=== PATIENT | female | born 1945 | race Caucasian/White ===

== ENCOUNTER 2017-02-16 11:39 | Emergency (ER) | payer OTHER ==
[~2017-02-16 11:39] MED LIST: B COMPLEX1 CA1 PO; BENICAR HCT 20-1 TA1 PO; CALTRATE 600+D PO; FISH OIL 1,0001 EAC2 PO; FISH OIL300 MG PO; LOSARTAN-HCTZ1 EACH PO; MEGARED OMEGA-1 EAC1; METOPROLOL SUCC25 MG PO; MULTIVITAMIN1 UDCAP PO; NIACIN500 M1 PO; PROTONIX PO; RELAFEN PO; TOPROL XL PO; VITAMIN B COMPLEX
[2017-02-16] MEDS ORDERED: ATORVASTATIN CA10 MG PO (11:42)
[2017-02-16 11:55] LABS: URINE APPEARANCE CLOUDY; URINE BILIRUBIN NEG (NEG); URINE BLOOD 2+ (NEG); URINE COLOR YELLOW; URINE GLUCOSE NEG (NORM); URINE KETONE TRACE (NEG); URINE LEUKOCYTE ESTERASE 3+ (NEG); URINE NITRATE NEG (NEG); URINE PH 5.5 (5-8); URINE PROTEIN 2+ (NEG); URINE SOURCE CLEAN CATCH; URINE UROBILINOGEN 0.2 MG/DL (NORM)
[2017-02-16 11:58] LABS: MICRO INDICATED? YES
[2017-02-16 11:59] LABS: CULTURE INDICATED? YES; URINE BACTERIA 2+ (NEG); URINE WBC INNUM /[HPF] (0-5)
[2017-02-16 12:29] LABS: BASOPHIL# 0.1 X10e3 (0-0.3); BASOPHIL% 0.4 % (0-2.5); EOSINOPHIL# 0.1 X10e3 (0-0.7); EOSINOPHIL% 0.8 % (0.0-7.0); HEMATOCRIT 35.6 % (35.0-45.0); LYMPHOCYTE% 8.4 % (17.0-45.0); MEAN CELL VOLUME 91.5 FL (83-96); MEAN CORPUSCULAR HEMOGLOBIN 30.8 PG (28-34); MEAN CORPUSCULAR HGB CONC 33.7 g/dL (30-36); MEAN PLATELET VOLUME 7.9 FL (6.5-11.5); MONOCYTE# 1.6 X10e3 (0-1.0); MONOCYTE% 13.8 % (3.0-12.0); NEUTROPHIL# 8.8 X10e3 (1.5-7.1); NEUTROPHIL% 76.6 % (40-75); PLATELET COUNT 183 X10e3 (140-420); RED BLOOD COUNT 3.89 X10e (3.90-5.30); RED CELL DISTRIBUTION WIDTH 13.9 % (11.0-15.5); WHITE BLOOD COUNT 11.5 X10e3 (4.0-10.5)
[2017-02-16 12:32] LABS: DIFF IND NO
[2017-02-16 12:46] LABS: ALBUMIN SERUM 3.5 g/dL (3.5-5.0); BILIRUBIN,TOTAL 1.4 mg/dL (0.2-2.0); BUN/CREATININE RATIO 16.36; CREATININE SERUM 1.1 mg/dL (0.6-1.4); GLOM FILT RATE Estimated 50.8 mL/min (>60); POTASSIUM 3.4 mmol/L (3.5-5.1); PROTEIN TOTAL SERUM 6.7 g/dL (6.0-8.3)
== END 2017-02-16 14:00 | disposition home or self-care (01) ==
LOC: SED 11:39
PROVIDERS: Emergency Medicine
DX: N39.0 Urinary tract infection, site not specified (principal); Z79.899 Other long term (current) drug therapy
CPT/HCPCS: 36415; 80053; 81003; 83605; 85025; 87086; 87088; 87186; 96374; 99284; J0696